=== PATIENT | female | born 1955 | race Caucasian/White ===

== ENCOUNTER 2021-05-22 16:56 | Emergency (ER) | payer OTHER ==
[2021-05-22 17:22] VITALS: BP 170/83; PULSE 74; O2SAT 97
--- NOTE | 2021-05-22 17:46 | ERPHSYRPT ---
- History of Present Illness Source: patient Exam Limitations: no limitations Patient Subjective Stated Complaint: cat bite Triage Nursing Assessment: Patient ambulated back to ED and transferred self to bed. Patient A+O X3. Patient's skin pink, warm and dry. Patient complains of a cat attacking her around 1500. Patient states she has scratches to back of shady legs from a cat. Patient complains of burning to shady legs. Patient states the cat was a stray. Right lower leg has two bite mikes with 5 scratches noted. Patient states she did clean wounds with peroxide and take a shower after incident before coming to ED. Physician History: 66 yo wf w cat bite-scratches R posterior calf at 15:00 today. Pt tried to feed/pet stray cat. It is unknown if cat is vaccinated. Pt's tetanus is UTD. Police have been notified. Method of Injury: incised (Cat bite/scratch) Occurred: other (15:00 today) Quality: aching Severity of Pain-Max: mild Severity of Pain-Current: mild Lower Extremities Pain: knee: right (R posterior thigh) Modifying Factors: Improves With: movement Associated Symptoms: none Allergies/Adverse Reactions: No Known Drug Allergies Allergy (Verified 05/22/21 17:13) Home Medications: Levothyroxine Sodium 25 Mcg [Synthroid 25 Mcg] 125 mcg PO CLARIFY 06/15/14 [History] Naproxen Sodium [Aleve] 220 mg PO DAILY PRN 06/15/14 [History] Hx Tetanus, Diphtheria Vaccination/Date Given: Yes (2 years ago) Hx Influenza Vaccination/Date Given: No Hx Pneumococcal Vaccination/Date Given: No Immunizations Up to Date: Yes Travel Risk - International Travel Have you traveled outside of the country in past 3 weeks: No - Coronavirus Screening Are you exhibiting any of the following symptoms?: No Close contact with a COVID-19 positive Pt in past 14-21 Days: No - Vaccine Status Have you recieved a Covid-19 vaccination: No - Review of Systems Constitutional: No Symptoms Eyes: No Symptoms Ears, Nose, & Throat: No Symptoms Respiratory: No Symptoms Cardiac: No Symptoms Abdominal/Gastrointestinal: No Symptoms Genitourinary Symptoms: No Symptoms Skin: No Symptoms Neurological: No Symptoms Psychological: No Symptoms Endocrine: No Symptoms Hematologic/Lymphatic: No Symptoms Immunological/Allergic: No Symptoms - Past Medical History Pertinent Past Medical History: No Neurological History: No Pertinent History ENT History: No Pertinent History Cardiac History: No Pertinent History Respiratory History: No Pertinent History Endocrine Medical History: Diabetes Type II, Hypothyroidism Musculoskeletal History: Degenerative Disk Disease, Osteoarthritis, Rheumatoid Arthritis, Other GI Medical History: Polyps History: No Pertinent History Psycho-Social History: No Pertinent History Female Reproductive Disorders: No Pertinent History Other Medical History: PMHX: 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 STATES GOUT IS IN HER SHOULDER AND HANDS NOT HER FEET. SX HX: SX SHADY CARPAL TUNNEL, SX SHADY FEET FOR RECONSTRUCTION, CHOLECYSTECTOMY - Past Surgical History Past Surgical History: Yes Neuro Surgical History: No Pertinent History Cardiac: No Pertinent History Respiratory: No Pertinent History Gastrointestinal: Cholecystectomy Genitourinary: No Pertinent History Musculoskeletal: Orthopedic Surgery Female Surgical History: No Pertinent History Other Surgical History: shady feet "bones broken and rewired" corrective surgery, shady carpal tunnel, colonoscopy with polypectomy. fusion to L4-L5 on 05/01/2021 - Social History Smoking Status: Never smoker Exposure to second hand smoke: No Drug Use: none Patient Lives Alone: Yes Significant Family History: no pertinent family hx - Female History Hx Now: No - Nursing Vital Signs Nursing Vital Signs: Initial Vital Signs Temperature 96.1 F 05/22/21 17:15 Pulse Rate 74 05/22/21 17:15 Respiratory Rate 18 05/22/21 17:15 Blood Pressure 170/83 05/22/21 17:15 O2 Sat by Pulse Oximetry 97 05/22/21 17:15 Pain Scale Pain Intensity 5 Hypertensive - Physical Exam General Appearance: no apparent distress Eyes, Ears, Nose, Throat Exam: normal ENT inspection, TMs normal, pharynx normal, moist mucous membranes Neck Exam: normal inspection, non-tender, supple, full range of motion, No Brudzinski, No Kernig's, No meningismus, No carotid bruit Cardiovascular/Respiratory Exam: normal breath sounds, regular rate/rhythm, heart sounds normal Gastrointestinal/Abdominal Exam: non-tender, soft Back Exam: normal inspection Hips Exam: right: non-tender, normal inspection, normal range of motion, no evidence of injury Legs Exam: right leg: other (R posterior calf w several scratches/puncture wounds/Mild edema/No erythema/Good distal capillary return and sensation) Knees Exam: bilateral knee: non-tender, normal inspection, normal range of motion, no evidence of injury Ankle Exam: bilateral ankle: non-tender, normal inspection, normal range of motion, no evidence of injury Foot Exam: bilateral foot: non-tender, normal inspection, normal range of motion, no evidence of injury DTR - Lower Extremities Exam: knee (R): 2+, knee (L): 2+ Neuro/Tendon Exam: normal sensation, normal motor functions, normal tendon functions, responds to pain, no evidence tendon injury, No motor deficit, No sensory deficit Mental Status Exam: alert, oriented x 3, cooperative Skin Exam: normal color SpO2 Interpretation: normal SpO2: 97 O2 Delivery: Room Air - Course Nursing assessment & vital signs reviewed: Yes - Progress Progress: improved Progress Note: 05/22/21 17:48 Wounds cleansed and dressed per nursing Pt refused pain meds Counseled pt/family regarding: diagnosis, need for follow-up - Departure Departure Disposition: Home Clinical Impression: Cat bite Condition: Stable Critical Care Time: No Referrals: DOCTOR,NO FAMILY [Primary Care Provider] - Follow up/PCP as directed Instructions: Animal Bites (DC) Additional Instructions: Wash scratches/bites twice a day with soap/water Apply antibiotic ointment If cat can not be caught and observed, rabies vaccine will have to be started Start Augmentin twice a day Watch for signs of infection-redness/increasing pain/pus/Temperature greater than 100.5 Prescriptions: Amox Tr/Potass Clav. 875 mg [Augmentin 875-125 Tablet] 875 mg PO BID 10 Days #20 tablet
== END 2021-05-22 17:55 | disposition home or self-care (01) ==
LOC: ED 16:56
DX: S80.871A Other superficial bite, right lower leg, initial encounter (principal); W55.01XA Bitten by cat, initial encounter; Y93.K9 Activity, other involving animal care; E11.9 Type 2 diabetes mellitus without complications; M06.9 Rheumatoid arthritis, unspecified; L40.50 Arthropathic psoriasis, unspecified
CPT/HCPCS: 99283

== ENCOUNTER 2025-03-10 18:05 | Observation (INO) | payer MEDICARE, OTHER ==
--- NOTE | 2025-03-10 18:21 | ERPHSYRPT ---
- History of Present Illness Time Seen by Provider: 03/10/25 18:21 Allergies/Adverse Reactions: influenza virus vaccine ts [id number] (36 mos,up) [From [employer]] Allergy (Verified 03/10/25 18:12) Home Medications: Levothyroxine Sodium 25 Mcg [Synthroid 25 Mcg] 100 mcg PO CLARIFY 06/15/14 [History] Aspirin EC 325 mg [Ecotrin 325 MG] 325 mg PO DAILY 03/10/25 [History] Hx Tetanus, Diphtheria Vaccination/Date Given: Yes (2 years ago) Hx Influenza Vaccination/Date Given: No Hx Pneumococcal Vaccination/Date Given: No - Past Medical History Pertinent Past Medical History: No Neurological History: Other ENT History: No Pertinent History Cardiac History: No Pertinent History, Myocardial Infarction (CT) Respiratory History: No Pertinent History Endocrine Medical History: Other Musculoskeletal History: Osteoarthritis, Rheumatoid Arthritis GI Medical History: Polyps History: No Pertinent History Psycho-Social History: No Pertinent History Female Reproductive Disorders: No Pertinent History Other Medical History: TINGLING IN THE BOTTOM OF R FOOT. BORDERLINE DM, GOUT, PSORIASIS OA. - Past Surgical History Past Surgical History: Yes Neuro Surgical History: No Pertinent History Cardiac: No Pertinent History Respiratory: No Pertinent History Gastrointestinal: Cholecystectomy Genitourinary: No Pertinent History Musculoskeletal: Orthopedic Surgery Female Surgical History: No Pertinent History Other Surgical History: emily feet "bones broken and rewired" corrective surgery, emily carpal tunnel, colonoscopy with polypectomy. fusion to L4-L5 on 05/01/2021 Significant Family History: no pertinent family hx - Social History Smoking Status: Never smoker Exposure to second hand smoke: No Drug Use: none Patient Lives Alone: Yes - Departure Referrals: RITO QUIROZ MD [Primary Care Provider, INTERNAL MEDICINE] - Follow up/PCP as directed
[2025-03-10] MEDS ORDERED: BABY ASPIRIN 81 MG CHEW ONE (18:42)
[2025-03-10] MEDS: BABY ASPIRIN 81 MG CHEW PO ONE (18:44)
[2025-03-10 18:45] LABS: BASOPHIL % 0.8 % (0.1-1.2); Basophil (Absolute #) 0.05 x10^3/uL (0.01-0.08); Eosinophil (Absolute #) 0.16 x10^3/uL (0.04-0.36); Hematocrit 43.8 % (34.1-44.9); Hemoglobin 14.0 g/dL (11.2-15.7); IMMATURE GRAN # 0.01 x10^3u/L (0.001-0.031); IMMATURE GRAN % 0.2 % (0.001-0.429); Lymphocyte (Absolute #) 1.43 x10^3/uL (1.18-3.74); Mean Corpuscular Hemoglobin 28.0 pg (25.6-32.2); Mean Corpuscular Hgb Concent. 32.0 g/dL (32.2-35.5); Monocyte (Absolute #) 0.52 x10^3/uL (0.24-0.86); NUCLEATED RBC # 0.00 x10^3u/L (0.00-0.012); NUCLEATED RBC % 0.0 % (0.00-0.2); Platelet Count 263 x10^3/uL (182-369); Red Blood Count 5.00 x10^6/uL (3.93-5.22); White Blood Count 6.6 x10^3/uL (3.98-10.04)
[2025-03-10 18:59] LABS: INR 0.92 (0.8-3.0); PROTIME 10.3 SECONDS (9.4-12.5)
[2025-03-10 19:06] LABS: Calcium 9.1 mg/dL (8.4-10.2); Carbon Dioxide 25.0 mmol/L (22-30); Creatinine 1 0.84 mg/dL (0.52-1.04); EST GLOMERULAR FILTRATION RATE 76.1 ML/MIN; Glucose 298.0 mg/dL (74-106); Potassium 4.2 mmol/L (3.5-5.1); SGOT/AST 34.0 U/L (14-36); SGPT/ALT 18.0 U/L (0-35); Total Protein 7.6 g/dL (6.3-8.2)
--- NOTE | 2025-03-10 19:34 | ERPHSYRPT ---
- History of Present Illness Time Seen by Provider: 03/10/25 18:21 Historian: patient Exam Limitations: no limitations Patient Subjective Stated Complaint: Pt. states, "I went to see Dr. Quiroz yesterday and he did an EKG. He told me that I have had a heart attack in the past 2 weeks. He put me on Isosorbide and Metoprolol and told me to watch my blood pressure. I don't have a way to check my blood pressure so I haven't started taking either medication yet. He also set me up to see Dr. Ko on 03/22. Well today I started having chest pain that is in the center of my chest and goes up into my throat. Then it causes me to belch." Triage Nursing Assessment: Pt. ambulates to room with slow steady gait, A&Ox3, Skin P/W/D, Resp. even unlabored, No edema, Physician History: Patient is a 69-year-old female history of untreated hyperlipidemia, untreated hypertension AR presents to our as a referral from Dr. Quiroz for evaluation of chest pain with radiation into her neck. Patient followed up with Dr. Quiroz today. An EKG was completed. He has vies her that it appeared that she had a heart attack in the past 2 weeks. Patient was started on isosorbide and metoprolol. Patient has yet to initiate blood pressure medication as she has no way of monitoring her blood pressure at home. Patient is currently scheduled to see member of congress Dr. Ko however since her chest pain occurred today patient presents to our ED for further evaluation and treatment. Pain described as an ache that is substernal. Pain radiates into her "throat". No associated nausea vomiting or diaphoresis. No dizziness. Patient otherwise feels well. She voices no other complaints or concerns at this time. Portions of this note were created with voice recognition technology. There may be grammatical, spelling, punctuation or sound alike errors Timing/Duration: today Activities at Onset: none Quality: aching Location: substernal Chest Pain Radiation: neck Severity of Pain-Max: moderate Severity of Pain-Current: mild Modifying Factors: Improves With: nothing Associated Symptoms: denies symptoms Nitro Today/Relief: no nitro taken today Aspirin Treatment Today: no aspirin today Allergies/Adverse Reactions: influenza virus vaccine ts [id number] (36 mos,up) [From [employer]] Allergy (Verified 03/10/25 18:12) Home Medications: Levothyroxine Sodium 25 Mcg [Synthroid 25 Mcg] 100 mcg PO CLARIFY 06/15/14 [History] Aspirin EC 325 mg [Ecotrin 325 MG] 325 mg PO DAILY 03/10/25 [History] Hx Tetanus, Diphtheria Vaccination/Date Given: Yes (2 years ago) Hx Influenza Vaccination/Date Given: No Hx Pneumococcal Vaccination/Date Given: No Travel Risk - International Travel Have you traveled outside of the country in past 3 weeks: No - Emerging Infectious Disease Are you exhibiting symptoms associated with any current EIDs: No - Review of Systems All Other Systems: Reviewed and Negative - Past Medical History Pertinent Past Medical History: No Neurological History: Other ENT History: No Pertinent History Cardiac History: No Pertinent History, Myocardial Infarction (AR) Respiratory History: No Pertinent History Endocrine Medical History: Other Musculoskeletal History: Osteoarthritis, Rheumatoid Arthritis GI Medical History: Polyps History: No Pertinent History Psycho-Social History: No Pertinent History Female Reproductive Disorders: No Pertinent History Other Medical History: TINGLING IN THE BOTTOM OF R FOOT. BORDERLINE DM, GOUT, PSORIASIS OA. - Past Surgical History Past Surgical History: Yes Neuro Surgical History: No Pertinent History Cardiac: No Pertinent History Respiratory: No Pertinent History Gastrointestinal: Cholecystectomy Genitourinary: No Pertinent History Musculoskeletal: Orthopedic Surgery Female Surgical History: No Pertinent History Other Surgical History: emily feet "bones broken and rewired" corrective surgery, emily carpal tunnel, colonoscopy with polypectomy. fusion to L4-L5 on 05/01/2021 Significant Family History: no pertinent family hx - Social History Smoking Status: Never smoker Exposure to second hand smoke: No Drug Use: none - Social Determinants of Health Will the patient participate in the screening: Declined to provide - Nursing Vital Signs Nursing Vital Signs: Initial Vital Signs Temperature 97.3 F 03/10/25 18:05 Pulse Rate 75 03/10/25 18:05 Respiratory Rate 16 03/10/25 18:05 Blood Pressure 172/81 03/10/25 18:05 O2 Sat by Pulse Oximetry 98 03/10/25 18:05 Pain Scale Pain Intensity 3 - Physical Exam General Appearance: no apparent distress, alert Eye Exam: PERRL/EOMI, eyes nml inspection Ears, Nose, Throat Exam: normal ENT inspection, moist mucous membranes Neck Exam: normal inspection, full range of motion Respiratory Exam: normal breath sounds, lungs clear, airway intact, No respiratory distress Cardiovascular Exam: regular rate/rhythm, normal heart sounds Gastrointestinal/Abdomen Exam: soft, No tenderness, No mass Back Exam: normal inspection, No CVA tenderness, No vertebral tenderness Extremity Exam: normal inspection, normal range of motion Neurologic Exam: alert, oriented x 3, cooperative, normal mood/affect, sensation nml, No motor deficits Skin Exam: normal color, warm, dry Lymphatic Exam: No adenopathy SpO2 Interpretation: normal SpO2: 96 O2 Delivery: Room Air - Course Nursing assessment & vital signs reviewed: Yes EKG Interpreted by Me: RATE (80), Sinus Rhythm, NORMAL AXIS, NORMAL INTERVALS, NORMAL QRS (Minimal ST segment depression laterally.) - Radiology Exams Chest X-ray Interpretation: Teleradiologist Report (Right lower lobe opacity) Ordered Tests: Active Orders 24 hr Category Date Time Status EKG-ER Only STAT Care 03/10/25 18:37 Completed IV Insertion STAT Care 03/10/25 18:37 Active Pulse Oximetry (ED) STAT Care 03/10/25 18:37 Active CHEST 1 VIEW (PORTABLE) Stat Exams 03/10/25 19:52 Taken BLOOD CULTURE Stat Lab 03/10/25 21:49 Ordered CBC W DIFF Stat Lab 03/10/25 18:30 Completed CMP Stat Lab 03/10/25 18:30 Completed D-DIMER QUANTITATIVE Stat Lab 03/10/25 18:30 Completed MAGNESIUM Stat Lab 03/10/25 18:30 Completed PROTIME WITH INR Stat Lab 03/10/25 18:30 Completed TROPONIN Q4H Lab 03/10/25 18:30 Completed TROPONIN Q4H Lab 03/10/25 20:35 Completed TROPONIN Q4H Lab 03/11/25 02:45 Ordered Transfer Order Routine Transfer 03/10/25 Ordered Medication Summary Generic Name Dose Route Start Last Admin Trade Name Freq PRN Reason Stop Dose Admin Ceftriaxone Sodium 2 gm in 100 mls @ 200 mls/hr 03/10/25 21:49 Rocephin 2 Gm/100 Ml Nacl IV 03/10/25 22:18 STAT ONE Azithromycin 500 mg/ Sodium 250 mls @ 250 mls/hr 03/10/25 21:49 Chloride IV 03/10/25 22:48 STAT STA Discontinued Medications Generic Name Dose Route Start Last Admin Trade Name Sylvia PRN Reason Stop Dose Admin Aspirin 324 mg 03/10/25 18:37 03/10/25 18:44 Aspirin 81 Mg Tab.Chew PO 03/10/25 18:38 Not Given STAT ONE Aspirin Confirm 03/10/25 18:42 Aspirin 81 Mg Tab.Chew Administered 03/10/25 18:43 Dose 324 mg .ROUTE .STK-MED ONE Lab/Rad Data: Laboratory Result Diagrams 03/10/25 18:30 03/10/25 18:30 Laboratory Results 03/10/25 03/10/25 03/10/25 Range/Units 20:35 18:30 18:30 WBC (3.98-10.04) x10^3/uL RBC (3.93-5.22) x10^6/uL Hgb (11.2-15.7) g/dL Hct (34.1-44.9) % MCV (79.4-94.8) fL MCH (25.6-32.2) pg MCHC (32.2-35.5) g/dL RDW (11.7-14.4) % Plt Count (182-369) x10^3/uL MPV (9.4-12.3) fL Gran % (34.0-71.1) % Immature Gran % (Auto) (0.001-0.429) % Nucleat RBC Rel Count (0.00-0.2) % Eos # (Auto) (0.04-0.36) x10^3/uL Immature Gran # (Auto) (0.001-0.031) x10^3u/L Absolute Lymphs (auto) (1.18-3.74) x10^3/uL Absolute Monos (auto) (0.24-0.86) x10^3/uL Absolute Nucleated RBC (0.00-0.012) x10^3u/L Lymphocytes % (19.3-51.7) % Monocytes % (4.7-12.5) % Eosinophils % (0.7-5.8) % Basophils % (0.1-1.2) % Absolute Granulocytes (1.56-6.13) x10^3/uL Basophils # (0.01-0.08) x10^3/uL PT 10.3 (9.4-12.5) SECONDS INR 0.92 (0.8-3.0) D-Dimer 0.57 H (0.0-0.50) mg/L Sodium (135-145) mmol/L Potassium (3.5-5.1) mmol/L Chloride (98-107) mmol/L Carbon Dioxide (22-30) mmol/L Anion Gap (5-15) MEQ/L BUN (7-17) mg/dL Creatinine (0.52-1.04) mg/dL Estimated GFR ML/MIN Glucose (74-106) mg/dL Calcium (8.4-10.2) mg/dL Magnesium (1.6-2.3) mg/dL Total Bilirubin (0.2-1.3) mg/dL AST (14-36) U/L ALT (0-35) U/L Alkaline Phosphatase (38-126) U/L Troponin I 0.023 < 0.012 (0.000-0.033) ng/mL Serum Total Protein (6.3-8.2) g/dL Albumin (3.5-5.0) g/dL 03/10/25 03/10/25 Range/Units 18:30 18:30 WBC 6.6 (3.98-10.04) x10^3/uL RBC 5.00 (3.93-5.22) x10^6/uL Hgb 14.0 (11.2-15.7) g/dL Hct 43.8 (34.1-44.9) % MCV 87.6 (79.4-94.8) fL MCH 28.0 (25.6-32.2) pg MCHC 32.0 L (32.2-35.5) g/dL RDW 12.6 (11.7-14.4) % Plt Count 263 (182-369) x10^3/uL MPV 11.0 (9.4-12.3) fL Gran % 67.1 (34.0-71.1) % Immature Gran % (Auto) 0.2 (0.001-0.429) % Nucleat RBC Rel Count 0.0 (0.00-0.2) % Eos # (Auto) 0.16 (0.04-0.36) x10^3/uL Immature Gran # (Auto) 0.01 (0.001-0.031) x10^3u/L Absolute Lymphs (auto) 1.43 (1.18-3.74) x10^3/uL Absolute Monos (auto) 0.52 (0.24-0.86) x10^3/uL Absolute Nucleated RBC 0.00 (0.00-0.012) x10^3u/L Lymphocytes % 21.6 (19.3-51.7) % Monocytes % 7.9 (4.7-12.5) % Eosinophils % 2.4 (0.7-5.8) % Basophils % 0.8 (0.1-1.2) % Absolute Granulocytes 4.45 (1.56-6.13) x10^3/uL Basophils # 0.05 (0.01-0.08) x10^3/uL PT (9.4-12.5) SECONDS INR (0.8-3.0) D-Dimer (0.0-0.50) mg/L Sodium 136 (135-145) mmol/L Potassium 4.2 (3.5-5.1) mmol/L Chloride 100 (98-107) mmol/L Carbon Dioxide 25 (22-30) mmol/L Anion Gap 15.3 H (5-15) MEQ/L BUN 14 (7-17) mg/dL Creatinine 0.84 (0.52-1.04) mg/dL Estimated GFR 76.1 ML/MIN Glucose 298 H (74-106) mg/dL Calcium 9.1 (8.4-10.2) mg/dL Magnesium 2.1 (1.6-2.3) mg/dL Total Bilirubin 0.50 (0.2-1.3) mg/dL AST 34 (14-36) U/L ALT 18 (0-35) U/L Alkaline Phosphatase 77 (38-126) U/L Troponin I (0.000-0.033) ng/mL Serum Total Protein 7.6 (6.3-8.2) g/dL Albumin 4.6 (3.5-5.0) g/dL - Progress Progress: improved Air Movement: good Progress Note: Patient is a 69-year-old female history of untreated hyperlipidemia, untreated hypertension AR presents to our as a referral from Dr. Quiroz for evaluation of chest pain with radiation into her neck. Patient followed up with Dr. Quiroz today. An EKG was completed. He has vies her that it appeared that she had a heart attack in the past 2 weeks. Physical exam essentially nonremarkable. EKG sinus rhythm however minimal ST segment depression observed laterally. D-dimer 0.57. This is negatively new just for age. Initial troponin negative. Troponin #2 negative however it appears that it has increased versus the initial troponin. Hospitalist advised of this change. Nitroglycerin paste applied Chest x-ray reviewed and interpreted by Dr. White. Right lower lobe opacity reserve. This is a preliminary read. Formal read pending. Radiologist confirms a right lower lobe opacity. Blood cultures obtained. IV antibiotics initiated. History obtained from patient I considered administering nitroglycerin. However patient has no active chest pain at this time. Differential diagnosis includes ACS, aortic pathology, GERD/esophagitis Complexity of problems addressed is moderate acute complicated. No critical care time. Complexity of data reviewed and analyzed is extensive. Test ordered chest reviewed results analyzed and correlated clinically with history and physical exam. Risk of complication at risk of morbidity/mortality of patient management is high. Patient requires hospitalization for further evaluation and treatment. Vital stable. Time spent admit patient approximately 20 minutes. Plan of care established for shared decision making. No social determinants of health present to impede follow-up. Case discussed with Dr. Mckeon hospitalist at 9:58 PM. He accepts admission to observation. Portions of this note were created with voice recognition technology. There may be grammatical, spelling, punctuation or sound alike errors 03/10/25 19:56 03/10/25 22:04 Blood Culture(s) Obtained: No Antibiotics given: No Will see patient in: hospital (observation) Counseled pt/family regarding: lab results, diagnosis, rad results - Departure Departure Disposition: Observation Clinical Impression: Chest pain, ACS (acute coronary syndrome), Hyperglycemia, Right lower lobe opacity Condition: Stable Critical Care Time: No Referrals: RITO QUIROZ MD [Primary Care Provider, INTERNAL MEDICINE] - Follow up/PCP as directed
[2025-03-10] MEDS ORDERED: ROCEPHIN 2 GM/100 ML NACL 2 GM/100 ML IVPB IV ONE (22:14)
[2025-03-10] MEDS ORDERED: NITRO-BID 2% UD PACKETS ONE (22:14)
[2025-03-10] MEDS: ROCEPHIN 2 GM/100 ML NACL 2 GM/100 ML IVPB IV ONE (22:15)
[2025-03-10] MEDS: NITRO-BID 2% UD PACKETS TOP ONE (22:15)
[2025-03-10] MEDS ORDERED: HUMALOG SQ PRN (23:09)
[2025-03-10] MEDS ORDERED: Zofran 4 MG/2 ML VIAL IV PRN (23:09)
[2025-03-10] MEDS ORDERED: SYNTHROID 25 MCG PO SCH (23:15)
[2025-03-10] MEDS: TYLENOL 325 MG PO PRN (23:40)
[2025-03-10] MEDS ORDERED: ZITHROMAX IV IV ONE (23:50)
--- NOTE | 2025-03-11 00:08 | PCM.HP ---
History of Present Illness - Chief Complaint Chief Complaint: Chest pain, ACS Date: 03/10/25 History of Present Illness: is a 69 year old female with a history of untreated hyperlipidemia, untreated hypertension, and untreated "borderline" DM, who presented to the ED as a referral from Dr. Morales for evaluation of chest pain with radiation into her neck. In the clinic, an EKG was completed and there was concern about Q waves and a possible recent [place]. The patient was started on isosorbide and metoprolol. Patient has yet to initiate blood pressure medication as she has no way of monitoring her blood pressure at home. She says that she previous had b een on a medication (possibly lisinopril) which caused a cough. The patient is currently scheduled to see agricultural systems specialist Dr. Nichole however since her chest pain occurred today patient presents to our ED for further evaluation and treatment. The pain was described as an ache that is substernal with radiation into her "throat". There was no associated nausea, vomiting, diaphoresis, or dizziness. In the ED, troponins were negative. Chest X ray demonstrated an opacity in the right lower lung requiring further definition. - Review of Systems Constitutional: No Symptoms Eyes: No Symptoms Ears, Nose, & Throat: No Symptoms Respiratory: No Symptoms Cardiac: Chest Pain, No Edema, No Palpitations, No Syncope, No Orthopnea, No PND, No Other Abdominal/Gastrointestinal: No Symptoms Genitourinary Symptoms: No Symptoms Musculoskeletal: No Symptoms Skin: No Symptoms Neurological: No Symptoms Psychological: No Symptoms Endocrine: No Symptoms Hematologic/Lymphatic: No Symptoms Immunological/Allergic: No Symptoms Medications & Allergies Home Medications: Home Medication List Levothyroxine Sodium 25 Mcg [Synthroid 25 Mcg] 100 mcg PO CLARIFY 06/15/14 [History Confirmed 03/10/25] Aspirin EC 325 mg [Ecotrin 325 MG] 325 mg PO DAILY 03/10/25 [History Confirmed 03/10/25] Allergies/Adverse Reactions: Allergies Allergy/AdvReac Type Severity Reaction Status Date / Time influenza virus vaccine ts Allergy Severe Verified 03/10/25 22:58 [id number] (36 mos,up) [From Fluarix] - Past Medical History Past Medical History: No Neurological History: No Pertinent History ENT History: No Pertinent History Cardiac History: Myocardial Infarction ([place]) Respiratory History: No Pertinent History Endocrine Medical History: Hypothyroidism Musculoskelatal History: Osteoarthritis, Rheumatoid Arthritis GI Medical History: Gallbladder Disease, Polyps History: No Pertinent History Pyscho-Social History: No Pertinent History Reproductive Disorders: No Pertinent History Comment: TINGLING IN THE BOTTOM OF R FOOT. BORDERLINE DM, GOUT, PSORIASIS OA. - Past Surgical History Past Surgical History: Yes Neuro Surgical History: No Pertinent History Cardiac History: No Pertinent History Respiratory Surgery: No Pertinent History GI Surgical History: Cholecystectomy Genitourinary Surgical Hx: No Pertinent History Musculskeletal Surgical Hx: Orthopedic Surgery Female Surgical History: No Pertinent History Other Surgical History: emily feet "bones broken and rewired" corrective surgery, emily carpal tunnel, colonoscopy with polypectomy. fusion to L4-L5 on 05/01/2021 Significant Family History: no pertinent family hx - Social History Smoking Status: Former smoker Exposure to second hand smoke: No Alcohol: None Drug Use: none - Social Determinants of Health Will the patient participate in the screening: Declined to provide - Physical Exam Vital Signs: Vital Signs - 24 hr Temp Pulse Pulse Resp BP BP Pulse Ox 03/10/25 23:22 98.3 F 70 16 158/75 95 03/10/25 22:30 63 16 157/82 98 03/10/25 22:06 96 03/10/25 22:02 68 17 98 03/10/25 21:31 62 17 118/64 98 03/10/25 21:00 62 22 167/76 98 03/10/25 20:30 64 20 147/64 98 03/10/25 20:00 61 15 150/70 97 03/10/25 19:30 62 18 154/71 99 03/10/25 19:00 66 19 129/59 96 03/10/25 18:50 94 L 03/10/25 18:30 69 23 154/69 95 03/10/25 18:08 82 17 172/81 98 03/10/25 18:06 80 23 97 03/10/25 18:05 97.3 F 75 75 16 172/81 98 General Appearance: no apparent distress, alert Neurologic Exam: alert, oriented x 3, cooperative, 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, normal mood/affect, nml cerebellar function, sensation nml, No motor deficits, No sensory deficit Eye Exam: PERRL/EOMI, eyes nml inspection, No scleral icterus, No pale conjunctivae, No photophobia Ears, Nose, Throat Exam: normal ENT inspection Neck Exam: normal inspection, non-tender, supple, full range of motion, No meningismus Respiratory Exam: normal breath sounds, lungs clear, airway intact, No chest tenderness, No respiratory distress Cardiovascular Exam: regular rate/rhythm, normal heart sounds, No murmur, No friction rub, No gallop, No edema Gastrointestinal/Abdomen Exam: soft, normal bowel sounds, No tenderness, No mass, No guarding Back Exam: normal range of motion Extremity Exam: normal inspection, normal range of motion, No pedal edema, No swelling Skin Exam: normal color, No rash, No petechiae, No abrasion, No cyanosis Results - Labs Lab/Micro Results: Lab Results-Last 24 Hours 03/10/25 03/10/25 03/10/25 Range/Units 18:30 18:30 18:30 WBC 6.6 (3.98-10.04) x10^3/uL RBC 5.00 (3.93-5.22) x10^6/uL Hgb 14.0 (11.2-15.7) g/dL Hct 43.8 (34.1-44.9) % MCV 87.6 (79.4-94.8) fL MCH 28.0 (25.6-32.2) pg MCHC 32.0 L (32.2-35.5) g/dL RDW 12.6 (11.7-14.4) % Plt Count 263 (182-369) x10^3/uL MPV 11.0 (9.4-12.3) fL Gran % 67.1 (34.0-71.1) % Immature Gran % (Auto) 0.2 (0.001-0.429) % Nucleat RBC Rel Count 0.0 (0.00-0.2) % Eos # (Auto) 0.16 (0.04-0.36) x10^3/uL Immature Gran # (Auto) 0.01 (0.001-0.031) x10^3u/L Absolute Lymphs (auto) 1.43 (1.18-3.74) x10^3/uL Absolute Monos (auto) 0.52 (0.24-0.86) x10^3/uL Absolute Nucleated RBC 0.00 (0.00-0.012) x10^3u/L Lymphocytes % 21.6 (19.3-51.7) % Monocytes % 7.9 (4.7-12.5) % Eosinophils % 2.4 (0.7-5.8) % Basophils % 0.8 (0.1-1.2) % Absolute Granulocytes 4.45 (1.56-6.13) x10^3/uL Basophils # 0.05 (0.01-0.08) x10^3/uL PT 10.3 (9.4-12.5) SECONDS INR 0.92 (0.8-3.0) D-Dimer 0.57 H (0.0-0.50) mg/L Sodium 136 (135-145) mmol/L Potassium 4.2 (3.5-5.1) mmol/L Chloride 100 (98-107) mmol/L Carbon Dioxide 25 (22-30) mmol/L Anion Gap 15.3 H (5-15) MEQ/L BUN 14 (7-17) mg/dL Creatinine 0.84 (0.52-1.04) mg/dL Estimated GFR 76.1 ML/MIN Glucose 298 H (74-106) mg/dL Calcium 9.1 (8.4-10.2) mg/dL Magnesium 2.1 (1.6-2.3) mg/dL Total Bilirubin 0.50 (0.2-1.3) mg/dL AST 34 (14-36) U/L ALT 18 (0-35) U/L Alkaline Phosphatase 77 (38-126) U/L Troponin I (0.000-0.033) ng/mL Serum Total Protein 7.6 (6.3-8.2) g/dL Albumin 4.6 (3.5-5.0) g/dL 03/10/25 03/10/25 Range/Units 18:30 20:35 WBC (3.98-10.04) x10^3/uL RBC (3.93-5.22) x10^6/uL Hgb (11.2-15.7) g/dL Hct (34.1-44.9) % MCV (79.4-94.8) fL MCH (25.6-32.2) pg MCHC (32.2-35.5) g/dL RDW (11.7-14.4) % Plt Count (182-369) x10^3/uL MPV (9.4-12.3) fL Gran % (34.0-71.1) % Immature Gran % (Auto) (0.001-0.429) % Nucleat RBC Rel Count (0.00-0.2) % Eos # (Auto) (0.04-0.36) x10^3/uL Immature Gran # (Auto) (0.001-0.031) x10^3u/L Absolute Lymphs (auto) (1.18-3.74) x10^3/uL Absolute Monos (auto) (0.24-0.86) x10^3/uL Absolute Nucleated RBC (0.00-0.012) x10^3u/L Lymphocytes % (19.3-51.7) % Monocytes % (4.7-12.5) % Eosinophils % (0.7-5.8) % Basophils % (0.1-1.2) % Absolute Granulocytes (1.56-6.13) x10^3/uL Basophils # (0.01-0.08) x10^3/uL PT (9.4-12.5) SECONDS INR (0.8-3.0) D-Dimer (0.0-0.50) mg/L Sodium (135-145) mmol/L Potassium (3.5-5.1) mmol/L Chloride (98-107) mmol/L Carbon Dioxide (22-30) mmol/L Anion Gap (5-15) MEQ/L BUN (7-17) mg/dL Creatinine (0.52-1.04) mg/dL Estimated GFR ML/MIN Glucose (74-106) mg/dL Calcium (8.4-10.2) mg/dL Magnesium (1.6-2.3) mg/dL Total Bilirubin (0.2-1.3) mg/dL AST (14-36) U/L ALT (0-35) U/L Alkaline Phosphatase (38-126) U/L Troponin I < 0.012 0.023 (0.000-0.033) ng/mL Serum Total Protein (6.3-8.2) g/dL Albumin (3.5-5.0) g/dL - Radiology Impressions Radiology Exams & Impressions: Radiology Procedures Category Date Time Status CHEST 1 VIEW (PORTABLE) Stat Exams 03/10/25 19:52 Taken CHEST WITH CONTRAST [CT] Stat Exams 03/10/25 23:08 Ordered ECHO W/2D AND DOPPLER [US] Routine Exams 03/10/25 23:10 Ordered - Other Procedures and Tests Respiratory Therapy 03/10/25 23:09 EKG REPEAT IN AM Assessment/Plan (1) Chest pain Current Visit: Yes Status: Acute Assessment & Plan: Continue to monitor on telemetry. On ASA. ECHO ordered. AM EKG. In AM, will need cardiology consultation. Code(s): R07.9 - CHEST PAIN, UNSPECIFIED (2) D-dimer, elevated Current Visit: Yes Status: Acute Assessment & Plan: Elevated D dimer noted. Will obtain CTA chest. Also need further identification of RLL opacification. Code(s): R79.89 - OTHER SPECIFIED ABNORMAL FINDINGS OF BLOOD CHEMISTRY (3) Essential hypertension Current Visit: Yes Status: Acute Assessment & Plan: Monitor BP trend. The patient voices that she does not want to be on medications but pharmacotherapy may be medically indicated. Code(s): I10 - ESSENTIAL (PRIMARY) HYPERTENSION (4) Hyperlipidemia Current Visit: Yes Status: Acute Assessment & Plan: Check FLP. Code(s): E78.5 - HYPERLIPIDEMIA, UNSPECIFIED (5) Hyperglycemia Current Visit: Yes Status: Acute Assessment & Plan: Check A1C and monitor sugars on ISS. 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 Code(s): R73.9 - HYPERGLYCEMIA, UNSPECIFIED Telemedicine Encounter - Telemedicine Encounter Telemedicine Encounter: "The entirety of this encounter was performed via Telemedicine" This visit was performed using real-time audio and video connection between my location and thepatients locationwith the assistance of a surrogateat the patients location. Written or verbal consent was obtained from the patient/guardian to perform this visit usingnchrmanetchtelemedicine technology. Any patient questions regarding the telemedicine interaction were answered. Please note that this admission required 47 minutes to complete.
[2025-03-11] MEDS: ZITHROMAX IV*** 500 MG in Sodium Chloride 0.9% 250 ML 250 ML IV STA (00:09)
--- NOTE | 2025-03-11 01:35 | XRAY ---
CLINICAL HISTORY: chest pain, pulmonary nodule COMPARISON: CT 01/14/2011. TECHNIQUE: Contiguous 3.[address] angiographic images of the chest were acquired with the administration of intravenous contrast. Coronal and sagittal reconstructions were obtained. ___ was administered for post-contrast images. One of these 3D techniques was utilized: Maximum Intensity Pixel (MIP), 3D Reconstructed Images, Volume Rendered Images, Surface Shaded Rendering. One of the following dose reduction techniques were utilized for this exam: Automated exposure control, adjustment of the mA and/or kV according to patient size, and use of iterative reconstruction. FINDINGS: Aorta: The thoracic aorta is normal in caliber. No evidence of aneurysm, dissection, or significant atherosclerotic changes. Aortic arch and descending thoracic aorta are unremarkable. Pulmonary Arteries: Pulmonary arteries are normal in size and opacification. No evidence of pulmonary embolism. No stenosis or filling defects. Superior Vena Cava (SVC) and Inferior Vena Cava (IVC): Normal opacification and caliber. No evidence of thrombus or obstruction. Mediastinum: No mediastinal mass or lymphadenopathy. Normal appearance of the thymus. Heart: Normal size and morphology of the heart. No pericardial effusion. Lungs: A few nodules seen measuring up to 3 mm seen in left upper lobe. Lungs are clear with no evidence of consolidation or masses. No pleural effusion or thickening. Bones: No fractures or lytic/sclerotic lesions of the visualized bony structures. Normal alignment and bone density. Soft Tissues: Normal appearance of the visualized soft tissues. No abnormal masses or fluid collections. IMPRESSION: 1- No pulmonary embolism. No evidence of consolidation or pleural effusion. 2-A few nodules seen measuring up to 3 mm seen in left upper lobe. 3- No evidence of significant vascular abnormalities. Electronically Signed by: Nick Mas MD. (03/11/2025 01:33:29 EST)
[2025-03-11 03:45] LABS: Calcium 9.0 mg/dL (8.4-10.2); Carbon Dioxide 22.0 mmol/L (22-30); Creatinine 1 0.83 mg/dL (0.52-1.04); EST GLOMERULAR FILTRATION RATE 77.2 ML/MIN; Glucose 99.0 mg/dL (74-106); Potassium 4.5 mmol/L (3.5-5.1)
[2025-03-11 04:20] VITALS: O2SAT 96
[2025-03-11 04:26] LABS: Cholesterol 184.0 mg/dL (50-200); LDL, DIRECT 112.0 mg/dL (30-100); TRIGLYCERIDE 212.0 mg/dL (30-150)
[2025-03-11 07:35] VITALS: BP 136/67; PULSE 66; RESP 17; TEMP 97.4
[2025-03-11] MEDS: SYNTHROID 100 MCG PO SCH (07:55)
[2025-03-11] MEDS: Ecotrin 325 MG PO SCH (07:59)
[2025-03-11] MEDS: Protonix 40MG Tablet PO SCH (08:01)
--- NOTE | 2025-03-11 08:31 | XRAY ---
Indication: Pain. Comparison: March 07, 2012 Portable chest remains inflated and clear. Heart not enlarged. Bony thorax intact with osteopenia and mild degenerative changes. No new/acute findings.
--- NOTE | 2025-03-11 10:16 | PCM.DS ---
Discharge Summary Date of Admission: 03/10/25 22:47 Date of Discharge: 03/11/25 Admitting Physician: GEORGIA RINCON MD Primary Care Provider: RITO QUIROZ Allergies Allergies influenza virus vaccine ts [id number] (36 mos,up) [From [employer]] Allergy (Severe, Verified 03/10/25 22:58) anaphylaxis Hospital Summary - Hospital Course Hospital Course: 03/10/25 is a 69-year-old female with a history of untreated hyperlipidemia, untreated hypertension, and borderline diabetes mellitus who presented to the emergency department on 03/10/25 as a referral from Dr. Quiroz for evaluation of chest pain radiating into her neck. In the clinic, an EKG demonstrated concern for Q waves and a possible recent myocardial infarction, and she was started on isosorbide and metoprolol. She has not yet initiated antihypertensive therapy due to lack of home blood pressure monitoring and reports prior intolerance to lisinopril due to cough. At presentation, her chest pain was described as a substernal ache radiating into her throat without associated nausea, vomiting, diaphoresis, or dizziness. Troponins were negative, and chest X-ray revealed an opacity in the right lower lung requiring further evaluation. On 03/11/25, the patient reported feeling well and expressed a desire to be discharged home. She denied chest pain or other concerning symptoms. Serial troponins remained negative. She has an outpatient follow-up scheduled with convertible sofa bedspring tester Dr. Nichole and was advised to follow up with her primary care physician next week. Her hemoglobin A1c was 5.71. She declined inpatient echocardiography, preferring to complete this study as an outpatient with Dr. Nichole. Chest CT demonstrated several small nodules in the left upper lobe measuring 3 mm, and she was counseled on the need for ongoing monitoring with her PCP. A 72-hour Holter monitor was ordered for outpatient evaluation given her report of intermittent elevated heart rates. Cardiology will continue outpatient evaluation. - Vitals & Intake/Output Vital Signs: Vital Signs Temperature 97.4 F 03/11/25 07:35 Pulse Rate 66 03/11/25 07:35 Respiratory Rate 17 03/11/25 07:35 Blood Pressure 136/67 03/11/25 07:35 O2 Sat by Pulse Oximetry 96 03/11/25 07:35 Intake & Output: Intake & Output 03/08/25 03/09/25 03/10/25 03/11/25 11:59 11:59 11:59 11:59 Intake Total 830 Balance 830 Weight 84.368 kg - Lab Result Diagrams: 03/10/25 18:30 03/11/25 02:45 Lab Results-Last 24 Hrs: Lab Results-Last 24 Hours 03/10/25 03/10/25 03/10/25 Range/Units 18:30 18:30 18:30 WBC 6.6 (3.98-10.04) x10^3/uL RBC 5.00 (3.93-5.22) x10^6/uL Hgb 14.0 (11.2-15.7) g/dL Hct 43.8 (34.1-44.9) % MCV 87.6 (79.4-94.8) fL MCH 28.0 (25.6-32.2) pg MCHC 32.0 L (32.2-35.5) g/dL RDW 12.6 (11.7-14.4) % Plt Count 263 (182-369) x10^3/uL MPV 11.0 (9.4-12.3) fL Gran % 67.1 (34.0-71.1) % Immature Gran % (Auto) 0.2 (0.001-0.429) % Nucleat RBC Rel Count 0.0 (0.00-0.2) % Eos # (Auto) 0.16 (0.04-0.36) x10^3/uL Immature Gran # (Auto) 0.01 (0.001-0.031) x10^3u/L Absolute Lymphs (auto) 1.43 (1.18-3.74) x10^3/uL Absolute Monos (auto) 0.52 (0.24-0.86) x10^3/uL Absolute Nucleated RBC 0.00 (0.00-0.012) x10^3u/L Lymphocytes % 21.6 (19.3-51.7) % Monocytes % 7.9 (4.7-12.5) % Eosinophils % 2.4 (0.7-5.8) % Basophils % 0.8 (0.1-1.2) % Absolute Granulocytes 4.45 (1.56-6.13) x10^3/uL Basophils # 0.05 (0.01-0.08) x10^3/uL PT 10.3 (9.4-12.5) SECONDS INR 0.92 (0.8-3.0) D-Dimer 0.57 H (0.0-0.50) mg/L Sodium 136 (135-145) mmol/L Potassium 4.2 (3.5-5.1) mmol/L Chloride 100 (98-107) mmol/L Carbon Dioxide 25 (22-30) mmol/L Anion Gap 15.3 H (5-15) MEQ/L BUN 14 (7-17) mg/dL Creatinine 0.84 (0.52-1.04) mg/dL Estimated GFR 76.1 ML/MIN Glucose 298 H (74-106) mg/dL POC Glucometer (74 to 106) mg/dL Hemoglobin A1c (4.5-6.0) % Calcium 9.1 (8.4-10.2) mg/dL Magnesium 2.1 (1.6-2.3) mg/dL Total Bilirubin 0.50 (0.2-1.3) mg/dL AST 34 (14-36) U/L ALT 18 (0-35) U/L Alkaline Phosphatase 77 (38-126) U/L Troponin I (0.000-0.033) ng/mL Serum Total Protein 7.6 (6.3-8.2) g/dL Albumin 4.6 (3.5-5.0) g/dL Triglycerides (30-150) mg/dL Cholesterol (50-200) mg/dL LDL Cholesterol (30-100) mg/dL HDL Cholesterol (40-60) mg/dL Heart Disease Risk Ratio TSH 3rd Generation (0.470-4.680) mIU/L 03/10/25 03/10/25 03/11/25 Range/Units 18:30 20:35 02:45 WBC (3.98-10.04) x10^3/uL RBC (3.93-5.22) x10^6/uL Hgb (11.2-15.7) g/dL Hct (34.1-44.9) % MCV (79.4-94.8) fL MCH (25.6-32.2) pg MCHC (32.2-35.5) g/dL RDW (11.7-14.4) % Plt Count (182-369) x10^3/uL MPV (9.4-12.3) fL Gran % (34.0-71.1) % Immature Gran % (Auto) (0.001-0.429) % Nucleat RBC Rel Count (0.00-0.2) % Eos # (Auto) (0.04-0.36) x10^3/uL Immature Gran # (Auto) (0.001-0.031) x10^3u/L Absolute Lymphs (auto) (1.18-3.74) x10^3/uL Absolute Monos (auto) (0.24-0.86) x10^3/uL Absolute Nucleated RBC (0.00-0.012) x10^3u/L Lymphocytes % (19.3-51.7) % Monocytes % (4.7-12.5) % Eosinophils % (0.7-5.8) % Basophils % (0.1-1.2) % Absolute Granulocytes (1.56-6.13) x10^3/uL Basophils # (0.01-0.08) x10^3/uL PT (9.4-12.5) SECONDS INR (0.8-3.0) D-Dimer (0.0-0.50) mg/L Sodium (135-145) mmol/L Potassium (3.5-5.1) mmol/L Chloride (98-107) mmol/L Carbon Dioxide (22-30) mmol/L Anion Gap (5-15) MEQ/L BUN (7-17) mg/dL Creatinine (0.52-1.04) mg/dL Estimated GFR ML/MIN Glucose (74-106) mg/dL POC Glucometer (74 to 106) mg/dL Hemoglobin A1c (4.5-6.0) % Calcium (8.4-10.2) mg/dL Magnesium (1.6-2.3) mg/dL Total Bilirubin (0.2-1.3) mg/dL AST (14-36) U/L ALT (0-35) U/L Alkaline Phosphatase (38-126) U/L Troponin I < 0.012 0.023 0.032 (0.000-0.033) ng/mL Serum Total Protein (6.3-8.2) g/dL Albumin (3.5-5.0) g/dL Triglycerides (30-150) mg/dL Cholesterol (50-200) mg/dL LDL Cholesterol (30-100) mg/dL HDL Cholesterol (40-60) mg/dL Heart Disease Risk Ratio TSH 3rd Generation (0.470-4.680) mIU/L 03/11/25 03/11/25 03/11/25 Range/Units 02:45 02:45 02:45 WBC (3.98-10.04) x10^3/uL RBC (3.93-5.22) x10^6/uL Hgb (11.2-15.7) g/dL Hct (34.1-44.9) % MCV (79.4-94.8) fL MCH (25.6-32.2) pg MCHC (32.2-35.5) g/dL RDW (11.7-14.4) % Plt Count (182-369) x10^3/uL MPV (9.4-12.3) fL Gran % (34.0-71.1) % Immature Gran % (Auto) (0.001-0.429) % Nucleat RBC Rel Count (0.00-0.2) % Eos # (Auto) (0.04-0.36) x10^3/uL Immature Gran # (Auto) (0.001-0.031) x10^3u/L Absolute Lymphs (auto) (1.18-3.74) x10^3/uL Absolute Monos (auto) (0.24-0.86) x10^3/uL Absolute Nucleated RBC (0.00-0.012) x10^3u/L Lymphocytes % (19.3-51.7) % Monocytes % (4.7-12.5) % Eosinophils % (0.7-5.8) % Basophils % (0.1-1.2) % Absolute Granulocytes (1.56-6.13) x10^3/uL Basophils # (0.01-0.08) x10^3/uL PT (9.4-12.5) SECONDS INR (0.8-3.0) D-Dimer (0.0-0.50) mg/L Sodium 136 (135-145) mmol/L Potassium 4.5 (3.5-5.1) mmol/L Chloride 105 (98-107) mmol/L Carbon Dioxide 22 (22-30) mmol/L Anion Gap 13.3 (5-15) MEQ/L BUN 15 (7-17) mg/dL Creatinine 0.83 (0.52-1.04) mg/dL Estimated GFR 77.2 ML/MIN Glucose 99 (74-106) mg/dL POC Glucometer (74 to 106) mg/dL Hemoglobin A1c 5.71 (4.5-6.0) % Calcium 9.0 (8.4-10.2) mg/dL Magnesium (1.6-2.3) mg/dL Total Bilirubin (0.2-1.3) mg/dL AST (14-36) U/L ALT (0-35) U/L Alkaline Phosphatase (38-126) U/L Troponin I (0.000-0.033) ng/mL Serum Total Protein (6.3-8.2) g/dL Albumin (3.5-5.0) g/dL Triglycerides 212 H (30-150) mg/dL Cholesterol 184 (50-200) mg/dL LDL Cholesterol 112 H (30-100) mg/dL HDL Cholesterol 41 (40-60) mg/dL Heart Disease Risk Ratio 4.0 TSH 3rd Generation 1.131 (0.470-4.680) mIU/L 03/11/25 Range/Units 07:21 WBC (3.98-10.04) x10^3/uL RBC (3.93-5.22) x10^6/uL Hgb (11.2-15.7) g/dL Hct (34.1-44.9) % MCV (79.4-94.8) fL MCH (25.6-32.2) pg MCHC (32.2-35.5) g/dL RDW (11.7-14.4) % Plt Count (182-369) x10^3/uL MPV (9.4-12.3) fL Gran % (34.0-71.1) % Immature Gran % (Auto) (0.001-0.429) % Nucleat RBC Rel Count (0.00-0.2) % Eos # (Auto) (0.04-0.36) x10^3/uL Immature Gran # (Auto) (0.001-0.031) x10^3u/L Absolute Lymphs (auto) (1.18-3.74) x10^3/uL Absolute Monos (auto) (0.24-0.86) x10^3/uL Absolute Nucleated RBC (0.00-0.012) x10^3u/L Lymphocytes % (19.3-51.7) % Monocytes % (4.7-12.5) % Eosinophils % (0.7-5.8) % Basophils % (0.1-1.2) % Absolute Granulocytes (1.56-6.13) x10^3/uL Basophils # (0.01-0.08) x10^3/uL PT (9.4-12.5) SECONDS INR (0.8-3.0) D-Dimer (0.0-0.50) mg/L Sodium (135-145) mmol/L Potassium (3.5-5.1) mmol/L Chloride (98-107) mmol/L Carbon Dioxide (22-30) mmol/L Anion Gap (5-15) MEQ/L BUN (7-17) mg/dL Creatinine (0.52-1.04) mg/dL Estimated GFR ML/MIN Glucose (74-106) mg/dL POC Glucometer 112 H (74 to 106) mg/dL Hemoglobin A1c (4.5-6.0) % Calcium (8.4-10.2) mg/dL Magnesium (1.6-2.3) mg/dL Total Bilirubin (0.2-1.3) mg/dL AST (14-36) U/L ALT (0-35) U/L Alkaline Phosphatase (38-126) U/L Troponin I (0.000-0.033) ng/mL Serum Total Protein (6.3-8.2) g/dL Albumin (3.5-5.0) g/dL Triglycerides (30-150) mg/dL Cholesterol (50-200) mg/dL LDL Cholesterol (30-100) mg/dL HDL Cholesterol (40-60) mg/dL Heart Disease Risk Ratio TSH 3rd Generation (0.470-4.680) mIU/L Micro Results-Entire Visit: Accuchecks Date 03/11/25 Time 07:34 - Radiology Exams Ordered Rad Exams-Entire Visit: Radiology Procedures Category Date Time Status CHEST 1 VIEW (PORTABLE) Stat Exams 03/10/25 19:52 Completed CHEST WITH CONTRAST [CT] Stat Exams 03/10/25 23:08 Completed ECHO W/2D AND DOPPLER [US] Routine Exams 03/11/25 08:00 Ordered - Procedures and Test Procedures and Tests throughout Hospitalization: Therapy Orders & Screens 03/10/25 23:09 EKG REPEAT IN AM Comment: Diagnosis: Chest pain, ACS 03/11/25 09:59 Holter Monitor ONCE Comment: Reason For Exam: Diagnosis: Chest pain, ACS Discharge Exam General Appearance: no apparent distress, alert, obese Neurologic Exam: alert, oriented x 3, cooperative, normal mood/affect, nml cerebellar function, sensation nml, No motor deficits Eye Exam: PERRL, EOMI, eyes nml inspection Ears, Nose, Throat Exam: normal ENT inspection, pharynx normal, moist mucous membranes Neck Exam: normal inspection, non-tender, supple, full range of motion Respiratory Exam: normal breath sounds, lungs clear, No respiratory distress Cardiovascular Exam: regular rate/rhythm, normal heart sounds Gastrointestinal/Abdomen Exam: soft, No tenderness, No mass Pelvic Exam: deferred Rectal Exam: deferred Back Exam: normal inspection, normal range of motion, No CVA tenderness, No vertebral tenderness Extremity Exam: normal inspection, normal range of motion Skin Exam: normal color, warm, dry Final Diagnosis/Problem List - Final Discharge Diagnosis/Problem (1) Chest pain Current Visit: Yes Status: Resolved Assessment & Plan: - Resolved since admission - Trops x3 negative - CXR: Portable chest remains inflated and clear. Heart not enlarged. Bony thorax intact with osteopenia and mild degenerative changes. No new/acute findings - Pt refuses Echo and will f/u OP with cardiology Dr. Nichole - Holter monitor- 72 hours - CBC, CMP reviewed - EKG - Tele Code(s): R07.9 - CHEST PAIN, UNSPECIFIED (2) D-dimer, elevated Current Visit: Yes Status: Acute Assessment & Plan: - D-Dimer 0.57 - CT chest: 1- No pulmonary embolism. No evidence of consolidation or pleural effusion. 2-A few nodules seen measuring up to 3 mm seen in left upper lobe. 3- No evidence of significant vascular abnormalities. Code(s): R79.89 - OTHER SPECIFIED ABNORMAL FINDINGS OF BLOOD CHEMISTRY (3) Essential hypertension Current Visit: Yes Status: Chronic Assessment & Plan: - Start home BP meds - BP stable Code(s): I10 - ESSENTIAL (PRIMARY) HYPERTENSION (4) Hyperglycemia Current Visit: Yes Status: Acute Assessment & Plan: - A1C 5.71 - Glucose controlled today Code(s): R73.9 - HYPERGLYCEMIA, UNSPECIFIED (5) Hyperlipidemia Current Visit: Yes Status: Acute Assessment & Plan: - Lipid panel reviewed - Advised diet and exercise control- can discuss with cardiology - Triglycerides 212, LDL 112 Code(s): E78.5 - HYPERLIPIDEMIA, UNSPECIFIED (6) Obesity (BMI 30-39.9) Current Visit: Yes Status: Chronic Assessment & Plan: - Advised heart healthy diet and exercise control Code(s): E66.9 - OBESITY, UNSPECIFIED (7) Lung nodules Current Visit: Yes Status: Acute Assessment & Plan: - LAZARO as seen on CTA chest - F/U OP with PCP for continued monitoring D/C plan of care time > 35 minutes - Discharge Discharge Date: 03/11/25 Disposition: Home, Self-Care Condition: Stable Prescriptions: Continue Levothyroxine Sodium 25 Mcg [Synthroid 25 Mcg] 100 mcg PO CLARIFY Aspirin EC 325 mg [Ecotrin 325 MG] 325 mg PO DAILY Metoprolol Succinate 25 mg Xl* [Toprol-Xl 25MG Tablets] 25 mg PO DAILY Isosorbide Mononitrate 30 mg [Imdur 30 MG] 30 mg PO DAILY Instructions: Chest pain - Discharge instructions Follow up with: RITO QUIROZ MD [Primary Care Provider, INTERNAL MEDICINE] - 03/17/25 10:00 am Luis Hamilton MD [CONSULTING PHYSICIAN, CARDIOLOGY] - 03/22/25 2:30 pm Referral Note: [facility]
[2025-03-11] MEDS ORDERED: Toprol-Xl 25MG Tablets PO SCH (11:00)
[2025-03-11] MEDS ORDERED: Imdur 30 MG PO SCH (11:00)
== END 2025-03-11 10:33 | disposition home or self-care (01) ==
LOC: ED 18:05 → MED SURG 22:47
PROVIDERS: ADMIT Internal Medicine; ATTEND Internal Medicine
DX: R07.9 Chest pain, unspecified (principal); I10 Essential (primary) hypertension; R73.9 Hyperglycemia, unspecified; E78.5 Hyperlipidemia, unspecified; E66.9 Obesity, unspecified; R91.1 Solitary pulmonary nodule; I25.2 Old myocardial infarction; Z79.899 Other long term (current) drug therapy
CPT/HCPCS: 36415; 71045; 71260; 80048; 80053; 80061; 82947; 83036; 83721; 83735; 84443; 84484; 85025; 85379; 85610; 87040; 93005; 93242; 93268; 94760; 99285; G0378